=== PATIENT | male | born 1980 | race Caucasian/White ===

== ENCOUNTER 2019-06-03 18:15 | Emergency (ER) | payer BC ==
[~2019-06-03] VITALS: Ht 188 cm; Wt 114.8 kg
[2019-06-03 18:26] VITALS: BP_SYST 137
--- NOTE | 2019-06-03 18:34 | NUR ---
Patient to ER [place] [facility] to [facility] for evaluation. Side rails up. Report given to Apirl BAI.
--- NOTE | 2019-06-03 18:35 | NUR ---
JAMIE Mata at bedside examining patient.
--- NOTE | 2019-06-03 19:00 | NUR ---
PT came into the ED for a rash. Reports that he was seen by his primary who dx him with possible shingles or cellulitis. Denies n/v/d or fever. No other complaints/injuries noted. Will cont. to monitor. Addendum: 06/04/19 at 0404 by [email or web address] PT came into the ED for a rash. Reports that he was seen by his primary who dx him with possible shingles or cellulitis. PT reports that he has a MOISE with neck pain. Denies n/v/d or fever. No other complaints/injuries noted. Will cont. to monitor.
[2019-06-03] MEDS ORDERED: CEPHALEXIN 500 MG CAPSULE PO ONE (19:15)
[2019-06-03 19:37] VITALS: BP_SYST 137
--- NOTE | 2019-06-03 19:37 | NUR ---
Patient given written and verbal discharge instructions and verbalizes understanding. ER MD Dr. Crenshaw discussed with patient the results and treatment provided. Patient in stable condition. ID arm band removed. Rx of gabapentin, ibuprofen and keflex given. Patient educated on pain management and to follow up with PMD. Pain Scale 0/10. Opportunity for questions provided and answered. Medication side effect fact sheet provided.
== END 2019-06-03 19:37 | disposition home or self-care (01) ==
LOC: SED 18:15
DX: R21 Rash and other nonspecific skin eruption (principal); Z88.0 Allergy status to penicillin
CPT/HCPCS: 99283